=== PATIENT | male | born 1945 | race Caucasian/White ===

== ENCOUNTER 2017-07-19 19:02 | Emergency (ER) | payer MEDICARE, OTHER ==
[~2017-07-19] VITALS: Ht 180.3 cm; Wt 73.3 kg
[2017-07-19 19:07] VITALS: BP 151/95; PULSE 84; RESP 20; TEMP 98.6
[2017-07-19 20:30] LABS: BASOPHIL # 0.1 TH/MM3 (0-0.2); BASOPHIL % 1.4 % (0.0-2.0); EOSINOPHIL # 0.1 TH/MM3 (0-0.4); EOSINOPHIL % 0.9 % (0.0-4.0); HEMATOCRIT 44.6 % (39.0-51.0); HEMO FLAGS DIFF FINAL; LYMPH % 17.6 % (9.0-44.0); LYMPHOCYTE # 1.7 TH/MM3 (1.0-4.8); MEAN CELL VOLUME 98.8 FL (80.0-100.0); MEAN CORPUSCULAR HEMOGLOBIN 32.5 PG (27.0-34.0); MEAN CORPUSCULAR HGB CONC 32.8 % (32.0-36.0); MONO % 6.8 % (0.0-8.0); NEUT % 73.3 % (16.0-70.0); PLATELET COUNT 173 TH/MM3 (150-450); RED BLOOD COUNT 4.51 MIL/MM3 (4.50-5.90); RED CELL DISTRIBUTION WIDTH 13.1 % (11.6-17.2); WHITE BLOOD COUNT 9.6 TH/MM3 (4.0-11.0)
[2017-07-19 20:38] LABS: CHLORIDE 103 MEQ/L (98-107); SODIUM (NA) 139 MEQ/L (136-145)
[2017-07-19 20:42] LABS: ANION GAP 7 MEQ/L (5-15); BICARBONATE 29.1 MEQ/L (21.0-32.0); BLOOD UREA NITROGEN 13 MG/DL (7-18)
[2017-07-19 20:44] LABS: APTT (PATIENT) 27.6 SEC (24.3-30.1); PROTHROMBIN TIME - PATIENT 11.8 SEC (9.8-11.6)
[2017-07-19 20:45] LABS: ALT (GPT) 27 U/L (12-78); AST (GOT) 31 U/L (15-37); GLOMERULAR FILTRATION RATE 75 ML/MIN (>89); INTERNATIONAL NORMALIZED RATIO 1.1 RATIO
[2017-07-19 20:47] LABS: TOTAL BILIRUBIN ADULT 0.4 MG/DL (0.2-1.0)
[2017-07-19 20:48] LABS: ALKALINE PHOSPHATASE 62 U/L (45-117); CREATINE KINASE 154 U/L (39-308)
[2017-07-19] MEDS ORDERED: PLAV75TA29 PO (21:02)
[2017-07-19] MEDS ORDERED: ASPI81CH CHEW (21:13)
[2017-07-19] MEDS ORDERED: LEVO25TA4 PO (21:13)
[2017-07-19] MEDS ORDERED: ATOR20TA15 PO (21:13)
[2017-07-19] MEDS ORDERED: LYRI75CA PO (21:13)
[2017-07-19] MEDS ORDERED: CHLO500T3 PO (21:13)
[2017-07-19] MEDS ORDERED: FOLI800T PO (21:13)
[2017-07-19] MEDS ORDERED: SULF500T3 PO ×2 (21:13)
[2017-07-19] MEDS ORDERED: METH2.5T PO (21:13)
[2017-07-19] MEDS ORDERED: DIPH25CA PO (21:13)
--- NOTE | 2017-07-19 21:58 | RADRPT ---
EXAM DATE/TIME: 07/19/2017 21:13 [place] COMPARISON: No previous studies available for comparison. INDICATIONS : Right leg pain. MEDICAL HISTORY : Rheumatoid arthritis. Cerebrovascular accident. Anticoagulant therapy. SURGICAL HISTORY : Prostatectomy. ENCOUNTER: Initial ACUITY: 2 day PAIN SCORE: 2/10 LOCATION: Right leg. TECHNIQUE: Venous ultrasound of the leg was performed from the inguinal ligament to the proximal calf. Real-leoncio e, color Doppler and spectral tracing, compression and augmentation techniques were used. FINDINGS: There is normal compressibility of the deep venous system from the inguinal region to the proximal ca lf. No echogenic clot is seen in the lumen of the common femoral, femoral, popliteal, and posterior tibial veins. There is a normal response of the venous system to proximal and distal augmentation an d respiration. CONCLUSION: Normal examination. Nikos Knutson MD on July 19, 2017 at 21:56 Board Certified Radiologist. This report was verified electronically.
--- NOTE | 2017-07-19 22:14 | PD ---
HPI Chief Complaint: Musculoskeletal Complaint Time Seen by Provider: 19:57 Travel History International Travel<30 days: No Contact w/Intl Traveler<30days: No Traveled to known affect area: No History of Present Illness HPI Patient is a 71-year-old male comes in complaining of right calf pain. He says it has been hurting him for the past 2 days. 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 He denies any chest pain or shortness of breath. He denies any recent travel. He denies any injury that he knows of. 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-MICROEMBOLISM) Musculoskeletal: Yes (RA) Tetanus Vaccination: Unknown Past Surgical History Prostatectomy: Yes (2007) Social History Alcohol Use: Yes (SOCIALLY) Tobacco Use: No Substance Use: No Allergies-Medications (Allergen,Severity, Reaction): Coded Allergies: No Known Allergies (Unverified , 07/19/17) Reported Meds & Prescriptions Reported Meds & Active Scripts Active Reported Diphenhydramine (Diphenhydramine HCl) 25 Mg Cap 25 Mg PO HS PRN Sulfasalazine 500 Mg Tab 500 Mg PO HS Sulfasalazine 500 Mg Tab 1,000 Mg PO DAILY Levothyroxine (Levothyroxine Sodium) 25 Mcg Tab 25 Mcg PO DAILY Lyrica (Pregabalin) 75 Mg Cap 75 Mg PO DAILY Chloroquine (Chloroquine Phosphate) 500 Mg Tab 200 Mg PO BID Methotrexate 2.5 Mg Tab 17.5 Mg PO Q7D Folic Acid 0.8 Mg Tab 1 Mg PO DAILY Aspirin 81 Mg Chew 81 Mg CHEW ONCE Atorvastatin (Atorvastatin Calcium) 20 Mg Tab 20 Mg PO HS Plavix (Clopidogrel Bisulfate) 75 Mg Tab 75 Mg PO DAILY Review of Systems Except as stated in HPI: all other systems reviewed are Neg General / Constitutional: No: Fever, Chills HENT: No: Headaches, Lightheadedness Cardiovascular: No: Chest Pain or Discomfort Respiratory: No: Shortness of Breath Gastrointestinal: No: Nausea, Vomiting Genitourinary: No: Dysuria Musculoskeletal: Positive: Pain, No: Edema Skin: No Rash, No Change in Pigmentation Neurologic: No: Weakness, Dizziness Physical Exam Narrative GENERAL: Awake and alert, in no acute distress. SKIN: Focused skin assessment warm/dry. HEAD: Atraumatic. Normocephalic. EYES: Pupils equal and round. No scleral icterus. ENT: Mucous membranes pink and moist. NECK: Trachea midline. No JVD. CARDIOVASCULAR: Regular rate and rhythm. No murmur appreciated. RESPIRATORY: No accessory muscle use. Clear to auscultation. Breath sounds equal bilaterally. MUSCULOSKELETAL: No obvious deformities. No clubbing. No cyanosis. No edema. Tender to palpation of the right calf. Pedal pulses intact. NEUROLOGICAL: Awake and alert. No obvious cranial nerve deficits. Motor grossly within normal limits. Normal speech. PSYCHIATRIC: Appropriate mood and affect; insight and judgment normal. Data Data Last Documented VS Vital Signs Date Time Temp Pulse Resp B/P (MAP) Pulse Ox O2 Delivery O2 Flow Rate FiO2 07/19/17 20:30 20 07/19/17 19:07 98.6 84 151/95 (113) Orders Orders Iv Access Insert/Monitor (07/19/17 20:01) Complete Blood Count With Diff (07/19/17 20:01) Comprehensive Metabolic Panel (07/19/17 20:01) Act Partial Throm Time (Ptt) (07/19/17 20:01) Prothrombin Time / Inr (Pt) (07/19/17 20:01) Creatine Kinase (Cpk) (07/19/17 20:01) Us Leg Venous Doppler (07/19/17 ) Labs Laboratory Tests Test 07/19/17 20:20 White Blood Count 9.6 TH/MM3 Red Blood Count 4.51 MIL/MM3 Hemoglobin 14.6 GM/DL Hematocrit 44.6 % Mean Corpuscular Volume 98.8 FL Mean Corpuscular Hemoglobin 32.5 PG Mean Corpuscular Hemoglobin Concent 32.8 % Red Cell Distribution Width 13.1 % Platelet Count 173 TH/MM3 Mean Platelet Volume 8.4 FL Neutrophils (%) (Auto) 73.3 % Lymphocytes (%) (Auto) 17.6 % Monocytes (%) (Auto) 6.8 % Eosinophils (%) (Auto) 0.9 % Basophils (%) (Auto) 1.4 % Neutrophils # (Auto) 7.0 TH/MM3 Lymphocytes # (Auto) 1.7 TH/MM3 Monocytes # (Auto) 0.7 TH/MM3 Eosinophils # (Auto) 0.1 TH/MM3 Basophils # (Auto) 0.1 TH/MM3 CBC Comment DIFF FINAL Differential Comment Prothrombin Time 11.8 SEC Prothromb Time International Ratio 1.1 RATIO Activated Partial Thromboplast Time 27.6 SEC Blood Urea Nitrogen 13 MG/DL Creatinine 0.98 MG/DL Random Glucose 99 MG/DL Total Protein 7.8 GM/DL Albumin 4.2 GM/DL Calcium Level 9.1 MG/DL Alkaline Phosphatase 62 U/L Aspartate Amino Transf (AST/SGOT) 31 U/L Alanine Aminotransferase (ALT/SGPT) 27 U/L Total Bilirubin 0.4 MG/DL Sodium Level 139 MEQ/L Potassium Level 4.0 MEQ/L Chloride Level 103 MEQ/L Carbon Dioxide Level 29.1 MEQ/L Anion Gap 7 MEQ/L Estimat Glomerular Filtration Rate 75 ML/MIN Total Creatine Kinase 154 U/L [facility] Medical Decision Making Medical Screen Exam Complete: Yes Emergency Medical Condition: Yes Differential Diagnosis Muscle strain versus muscle breakdown versus DVT Narrative Course Patient is a 71-year-old male comes in complaining of right calf pain. Exam shows tenderness to the right calf. IV established, labs sent. Labs show no acute abnormalities. Creatinine and CPK are within normal limits. Patient does not want any pain medicine at this time. Ultrasound of the leg shows no evidence of DVT. Last 24 hours Impressions Lower Extremity Ultrasound 07/19/17 0000 Signed Impressions: Service Date/Time: Wednesday, July 19, 2017 21:13 - CONCLUSION: Normal examination. Nikos Knutson MD Patient is relieved by the results. He is advised follow-up with his doctor. Advised to return to the ED as needed for any worsening symptoms. Diagnosis Primary Impression: Right leg pain Patient Instructions: General Instructions, Leg Pain (ED) Additional Instructions: Follow-up with your doctor. Take Tylenol or ibuprofen as needed for pain. Return to the ED as needed for any worsening symptoms. Disposition: 01 DISCHARGE HOME Condition: Stable Mirlande Harris MD Jul 19, 2017 22:14
[2017-07-19 22:33] VITALS: BP 147/84
== END 2017-07-19 22:37 | disposition home or self-care (01) ==
LOC: PHED 19:02
DX: M79.661 Pain in right lower leg (principal); M35.9 Systemic involvement of connective tissue, unspecified; Z79.02 Long term (current) use of antithrombotics/antiplatelets; Z86.718 Personal history of other venous thrombosis and embolism
CPT/HCPCS: 80053; 82550; 85025; 85610; 85730; 93971; 99284